=== PATIENT | male | born 1990 | race Caucasian/White ===

== ENCOUNTER 2024-12-02 17:03 | Emergency (ER) | payer BC, SELFPAY ==
[2024-12-02 17:09] VITALS: BP 117/55; PULSE 60; RESP 18; TEMP 36.6; O2SAT 99; BMI 28.7
--- NOTE | 2024-12-02 17:14 | ED_ITS ---
HPI - General Adult General Chief complaint: Wound/Laceration Stated complaint: left 5th finger laceration Time Seen by Provider: 12/02/24 21:18 Source: patient Mode of arrival: ambulatory Limitations: no limitations History of Present Illness ED Provider: Dr. Prisca Morejon HPI narrative: Patient comes to the emergency room complaining of a laceration to the pinky finger of the left hand, aspect. Patient states that he was trying to cook hamburgers. Patient states that the meat was frozen and the knife accidentally slipped and caused a laceration. Patient denies any other injuries. Related Data Allergies Allergy/AdvReac Type Severity Reaction Status Date / Time No Known Allergies Allergy Verified 12/02/24 17:10 Review of Systems Review of Systems: Constitutional : No Weight loss, No Fever, No Chills, No Night Sweats, No Fa tigue, No Malaise ENT/Mouth : No Hearing loss, No Ear Pain, No Nasal Congestion, No Sinus Pain, No Hoarseness, No sore throat, No Rhinorrhea, No Swallowing Difficulty Eyes: No Eye Pain, No Swelling, No Redness, No Foreign Body, No Discharge, No Vision Changes Cardiovascular : No Chest Pain, No SOB, No Dyspnea on Exertion, No Orthopnea, No Edema, No Palpitations Respiratory : No Cough, No Sputum, No Wheezing, No Smoke Exposure, No Dyspnea Gastrointestinal : No Nausea, No Vomiting, No Diarrhea, No Constipation, No abdominal Pain, No Hematochezia, No Melena Genitourinary : no irregular bleeding, No Dysuria, No Urinary Frequency, No Hematuria, No Urinary Incontinence, No Urgency, No Flank Pain, No Urinary Flow Changes, No Hesitancy Musculoskeletal : No joint pain, No Myalgias, No Joint Swelling Skin : Complaining of a laceration to the 5th finger palmar aspect Neuro : No Weakness, No Numbness, No Paresthesias, No Loss of Consciousness, No Dizziness, No Headache Psych : No Anxiety/Panic, No Depression, No SI/HI/AH/VH, No Social Issues, Heme/Lymph: No Bruising, No Bleeding,No Lymphadenopathy Endocrine : No Polyuria, No Polydipsia, No Temperature Intolerance PMFSH Social History Social History Smoked in Last 30 Days: No Use of substances other than those prescribed or required for medical reasons: No Advance Directives: No Advance Directives Information Provided: Yes Physical Exam ED Vital Signs: Vital Signs - 24 hr 12/02/24 17:09 12/02/24 21:05 Temperature 97.8 F 96.6 F L Pulse Rate 60 51 Respiratory Rate 18 16 Blood Pressure 117/55 L 119/65 Pulse Oximetry 99 98 Oxygen Delivery Method Room Air Room Air BMI result Body Mass Index 28.7 Const Other: Appearance: Alert. Oriented X3. No acute distress. Eyes: Pupils equal, round and reactive to light. ENT: Pharynx normal. Neck: Normal inspection. Neck supple. No lymph nodes noted. No crepitus CVS: Normal heart rate and rhythm. Pulses normal. Normal S1 and S2 Respiratory: No respiratory distress. Breath sounds normal. No Wheezing. No rales Abdomen: Soft and nontender. No rigidity. No distention. Skin: Patient has a laceration to the pinky finger of the left hand palmar aspect, proximally 1.5 cm. There is a small flap. Bleeding controlled, fairly superficial. Extremities: No lower extremity edema. No Lacerations. No Rash Neuro: Oriented X 3. No motor deficit. No sensory deficit. Moving all extremities. No slurred speech. CN 2 through 12 grossly intact Psych: calm, cooperative, normal affect Course Course Course Narrative: This is a rapid medical exam performed by Charlotte Maxwell PA-C. 34-year-old male presents with left finger laceration. Patient states he was working in a kitchen, cutting meat, when he sliced his left 5th digit. Unclear if tetanus is up-to-date. We will order a tetanus vaccine, the patient was stable and can return to the waiting room pending his full medical assessment. Medications Administered Discontinued Medications Generic Name Dose Route Start Last Admin Trade Name Giuseppeq PRN Reason Stop Dose Admin Diphtheria/Tetanus/Acell Pertussis 0.5 ml 12/02/24 17:13 12/02/24 21:16 Diphth,Pertus(Acell),Tet Adult 0.5 Ml Syringe IM 12/02/24 17:14 Not Given .ONCE ONE Medical Decision Making Medical Decision Making MDM Narrative: I discussed with the patient that at this time, stitches are not quite indicated, very borderline whether he needs them or not. Patient is terrified of needles. Patient states that he does not want stitches. The wound was thoroughly cleaned, Steri-Strips were applied Patient was offered a Tdap booster since he is not up-to-date. Patient states that he does not want a Tdap booster due to his fear of needles. Patient had small vasovagal incident when the Band-Aid was removed so I could see the wound. Patient recovered well. Critical Care Time Critical Care Time Critical Care Time: No Discharge Plan Discharge Clinical Impression: Laceration Patient Disposition: Home, Self-Care Instructions: Finger Laceration (ED) Additional Instructions: Please follow-up with your primary care physician tomorrow. If you have any worsening or new symptoms, please return to the emergency room or call 911 Print Language: Welsh
[2024-12-02 21:05] VITALS: BP 119/65; PULSE 51; RESP 16; TEMP 35.9; O2SAT 98
[2024-12-02 21:44] VITALS: BP 119/65; PULSE 51; RESP 16; TEMP 35.9; O2SAT 98
== END 2024-12-02 21:44 | disposition home or self-care (01) ==
PROVIDERS: Emergency Provider Emergency Medicine
DX: S61.217A Laceration without foreign body of left little finger without damage to nail, initial encounter (principal); W45.8XXA Other foreign body or object entering through skin, initial encounter; Y93.9 Activity, unspecified; Y92.9 Unspecified place or not applicable; Y99.8 Other external cause status
CPT/HCPCS: 99282; 99284